=== PATIENT | female | born 2000 | race Caucasian/White ===

== ENCOUNTER 2023-05-08 17:53 | Emergency (ER) | payer OTHER ==
[~2023-05-08] VITALS: Ht 167.6 cm; Wt 80.6 kg
[2023-05-08 17:53] VITALS: BP 144/89; TEMP 98.7; O2SAT 98
[2023-05-08 19:12] LABS: BASO % 0.4 % (0.0-1.0); EOS # 0.2 10^3/uL (0.0-0.5); EOS % 1.8 % (0.0-3.0); HEMOGLOBIN 13.2 g/dl (12.0-15.5); LYMPH # 2.5 10^3/uL (1.5-5.0); LYMPH % 24.3 % (24.0-44.0); MEAN CORPUSCULAR HEMOGLOBIN 28.8 pg (27.0-33.0); MEAN CORPUSCULAR HGB CONC 32.2 g/dl (32.0-36.5); MEAN CORPUSCULAR VOLUME 89.3 fl (80.0-96.0); MONO # 0.5 10^3/uL (0.0-0.8); MONO % 5.2 % (2.0-8.0); PLATELET COUNT, AUTOMATED 218 10^3/uL (150-450); RED BLOOD COUNT 4.59 10^6/uL (4.00-5.40); WHITE BLOOD COUNT 10.3 10^3/uL (4.0-10.0)
[2023-05-08 19:43] LABS: BLOOD UREA NITROGEN 10 MG/DL (9-23); CALCIUM LEVEL 9.4 MG/DL (8.5-10.1); CARBON DIOXIDE LEVEL 26 MMOL/L (20-31); CHLORIDE LEVEL 106 MMOL/L (98-107); CREATININE FOR GFR 0.77 MG/DL (0.55-1.30); GLUCOSE, FASTING 96 MG/DL (60-100); POTASSIUM SERUM 4.2 MMOL/L (3.5-5.1); SODIUM LEVEL 140 MMOL/L (136-145)
[2023-05-08] MEDS ORDERED: ONDANSETRON 4MG 2ML VIAL IV ONE (20:25)
[2023-05-08] MEDS ORDERED: NS 1,000 ML IV ONE (20:25)
[2023-05-08] MEDS ORDERED: KETOROLAC 30 MG/ML 1ML VIAL IV ONE (20:25)
[2023-05-08 20:42] LABS: LIPASE 27 U/L (12-53)
[2023-05-08 20:44] LABS: ALBUMIN 3.9 G/DL (3.2-5.2); ALKALINE PHOSPHATASE 63 U/L (46-116); ALT/SGPT 22 U/L (7.0-40); AST/SGOT 18 U/L (<34); BILIRUBIN,DIRECT < 0.1 MG/DL (<0.4); BILIRUBIN,TOTAL 0.2 MG/DL (0.3-1.2); TOTAL PROTEIN 7.2 G/DL (5.7-8.2)
[2023-05-08] MEDS ORDERED: ONDA4TAB6 PO (21:49)
[2023-05-08] MEDS ORDERED: KETO10TAB PO (21:49)
[2023-05-08] MEDS ORDERED: MACR100C43 PO (21:49)
[2023-05-08] MEDS ORDERED: NITROFURANTOIN (MACROBID) 100 MG CAP PO ONE (21:50)
== END 2023-05-08 22:02 | disposition home or self-care (01) ==
LOC: M ED 17:53
DX: N39.0 Urinary tract infection, site not specified (principal); Z88.1 Allergy status to other antibiotic agents; Z88.5 Allergy status to narcotic agent
CPT/HCPCS: 74176; 76705; 80047; 80048; 80076; 81001; 83690; 84702; 85025; 87088; 87186; 96374; 96375; 99282; J1885; J2405